=== PATIENT | male | born 1985 | race American Indian/Alaskan Native ===

== ENCOUNTER 2017-11-27 06:22 | Emergency (ER) | payer MEDICAID ==
[2017-11-27 06:35] VITALS: RESP 18; O2SAT 100
--- NOTE | 2017-11-27 08:23 | C.PDOC ---
History Of Present Illness 31 year old male is brought to ED via EMS after being found laying on the ground. Pt admits to drinking alcohol. Otherwise, denies any physical complaints at this time. Time Seen by Provider: 11/27/17 07:02 Chief Complaint (Nursing): Substance Abuse History Per: Patient History/Exam Limitations: intoxication Onset/Duration Of Symptoms: Gradual Current Symptoms Are (Timing): Still Present Suicide/Self Injury Attempted (Context): None Modifying Factor(s): Alcohol Severity: None Pain Scale Rating Of: 0 Associated Symptoms: denies: Suicidal Thoughts, Suicidal Plan Involuntary Hold By: None Recent travel outside of the [place]: No Additional History Per: EMS Past Medical History Reviewed: Historical Data, Nursing Documentation, Vital Signs Vital Signs: Last Vital Signs Temp 98 F 11/27/17 11:12 Pulse 76 11/27/17 11:12 Resp 18 11/27/17 11:12 BP 120/67 11/27/17 11:12 Pulse Ox 100 11/27/17 11:12 Family History: States: Unknown Family Hx - Social History Hx Alcohol Use: Yes Hx Substance Use: Yes - Immunization History Hx Tetanus Toxoid Vaccination: No Hx Influenza Vaccination: No Hx Pneumococcal Vaccination: No Review Of Systems Except As Marked, All Systems Reviewed And Found Negative. Constitutional: Negative for: Fever, Chills Cardiovascular: Negative for: Chest Pain, Palpitations Respiratory: Negative for: Cough, Shortness of Breath Gastrointestinal: Negative for: Nausea, Vomiting, Abdominal Pain Neurological: Negative for: Headache, Dizziness Psych: Negative for: Suicidal ideation Physical Exam - Physical Exam Appears: Non-toxic, No Acute Distress Skin: Warm, Dry Head: Atraumatic, Normacephalic Eye(s): bilateral: Normal Inspection Oral Mucosa: Moist, Other (EtOH on breath) Neck: Normal ROM, Supple Cardiovascular: Rhythm Regular Respiratory: Normal Breath Sounds, No Rales, No Rhonchi, No Wheezing Gastrointestinal/Abdominal: Soft, No Tenderness Extremity: Bilateral: Atraumatic, Normal ROM Neurological/Psych: Oriented x3 ED Course And Treatment O2 Sat by Pulse Oximetry: 100 Pulse Ox Interpretation: Normal Medical Decision Making Medical Decision Making: Assessment: Intoxication Patient is being discharged home, with instructions to follow up with PMD in 1- 2 days further evaluation. Return to ED if symptoms persist or worsen. Patient is ambulatory without limitations. Will discharge home as planned. Disposition - Disposition Referrals: [facility] [Outside] Disposition: HOME/ ROUTINE Disposition Time: 13:00 Condition: STABLE Additional Instructions: follow up with your doctor or clinic in 2 days call to make an appointment decrease alcohol use continue your home medications return to ER if symptoms worsens or progress Instructions: Alcohol Abuse and Alcoholism (DC) Forms: General Discharge Instructions, [facility] (Lithuanian) - Clinical Impression Clinical Impression: Alcohol intoxication - Scribe Statement The provider has reviewed the documentation as recorded by the Scribbaylee Barron All medical record entries made by the Chuckibbaylee were at my direction and personally dictated by me. I have reviewed the chart and agree that the record accurately reflects my personal performance of the history, physical exam, medical decision making, and the department course for this patient. I have also personally directed, reviewed, and agree with the discharge instructions and disposition.
[2017-11-27 11:14] VITALS: BP 120/67; PULSE 76; TEMP 98
== END 2017-11-27 11:20 | disposition home or self-care (01) ==
LOC: C.ER 06:22
DX: F10.129 Alcohol abuse with intoxication, unspecified (principal)